=== PATIENT | female | born 1960 | race Caucasian/White ===

== ENCOUNTER 2019-02-04 10:03 | Day surgery (SDC) | payer OTHER ==
[~2019-02-04] VITALS: Ht 170.2 cm; Wt 89.2 kg
[~2019-02-04 10:03] MED LIST: CLON.5; CLON.5 PO; DULO30 PO; Flovent Diskus50 MCG IH; HYDR1TAB94; HYDR1TAB94 PO; METO25 PO; METO50ER PO; SUMA25 PO; ZOLP5 PO
== END 2019-02-04 11:45 | disposition home or self-care (01) ==
LOC: ORSCSDS 10:03
PROVIDERS: Internal Medicine Gastroenterology
PROC: 0DBE8ZX Excision of Large Intestine, Via Natural or Artificial Opening Endoscopic, Diagnostic (ICD-10-PCS; principal; 2019-02-04 11:15)
PROC: 0DBH8ZX Excision of Cecum, Via Natural or Artificial Opening Endoscopic, Diagnostic (ICD-10-PCS; principal; 2019-02-04 11:15)
PROC: 0DB98ZX Excision of Duodenum, Via Natural or Artificial Opening Endoscopic, Diagnostic (ICD-10-PCS; principal; 2019-02-04 11:15)
PROC: 0DB68ZX Excision of Stomach, Via Natural or Artificial Opening Endoscopic, Diagnostic (ICD-10-PCS; principal; 2019-02-04 11:15)
PROC: 0DB58ZX Excision of Esophagus, Via Natural or Artificial Opening Endoscopic, Diagnostic (ICD-10-PCS; principal; 2019-02-04 11:15)
DX: R10.13 Epigastric pain (principal); K21.9 Gastro-esophageal reflux disease without esophagitis; D13.0 Benign neoplasm of esophagus; K29.70 Gastritis, unspecified, without bleeding; Z12.11 Encounter for screening for malignant neoplasm of colon; Z86.010 Personal history of colon polyps; D12.0 Benign neoplasm of cecum; K44.9 Diaphragmatic hernia without obstruction or gangrene; K57.30 Diverticulosis of large intestine without perforation or abscess without bleeding; K64.8 Other hemorrhoids; Z79.899 Other long term (current) drug therapy
CPT/HCPCS: 88305; 88342; J1980; J2704; J7120

== ENCOUNTER → 2021-05-30 | Outpatient (CLI) | payer OTHER | END | disposition home or self-care (01) | LOC: LAB 08:20 → LAB SHORT 08:20 | DX: L82.1 Other seborrheic keratosis (principal) | CPT/HCPCS: 88305 ==

== ENCOUNTER 2023-10-21 02:35 | Day surgery (SDC) | payer MEDICARE, OTHER ==
[2023-10-21 10:07] VITALS: BP 137/92
[2023-10-21] MEDS ORDERED: METHOTREXATE2.5 M1 PO (11:37)
[2023-10-21] MEDS ORDERED: Doxycycline Mo100 M1 PO (11:39)
== END 2023-10-21 11:08 | disposition home or self-care (01) ==
LOC: ATC 02:35
DX: L40.50 Arthropathic psoriasis, unspecified (principal)
CPT/HCPCS: 96365; J1602

== ENCOUNTER 2023-11-18 00:06 | Day surgery (SDC) | payer MEDICARE, OTHER ==
[~2023-11-18 00:06] MED LIST changes: +Doxycycline Mo100 M1 PO; +METHOTREXATE2.5 M1 PO
[2023-11-18] MEDS ORDERED: NS IV SCH (06:00)
[2023-11-18] MEDS ORDERED: GOLIMUMAB IV SCH (06:00)
[2023-11-18 10:15] VITALS: BP 116/84
== END 2023-11-18 11:55 | disposition home or self-care (01) ==
LOC: ATC 00:06
DX: L40.50 Arthropathic psoriasis, unspecified (principal)
CPT/HCPCS: 96365; J1602

== ENCOUNTER 2024-12-21 02:07 | Day surgery (SDC) | payer MEDICARE, OTHER ==
[~2024-12-21] VITALS: Wt 89.4 kg
[2024-12-21] MEDS ORDERED: CELE200 PO (07:38)
[2024-12-21] MEDS ORDERED: SIMPONI AR50 MG/4 M1 IV (07:38)
[2024-12-21] MEDS ORDERED: DULO30 PO (07:40)
[2024-12-21 07:41] VITALS: BP 119/83
[2024-12-21] MEDS ORDERED: NS IV SCH (07:55)
[2024-12-21] MEDS ORDERED: GOLIMUMAB IV SCH (07:55)
== END 2024-12-21 09:12 | disposition home or self-care (01) ==
LOC: ATC 02:07
DX: L40.50 Arthropathic psoriasis, unspecified (principal)
CPT/HCPCS: 96365; J1602

== ENCOUNTER 2025-01-18 01:23 | Day surgery (SDC) | payer MEDICARE, OTHER ==
[~2025-01-18 01:23] MED LIST changes: +CELE200 PO; +SIMPONI AR50 MG/4 M1 IV
[2025-01-18] MEDS ORDERED: GOLIMUMAB IV SCH ×2 (06:00→10:15)
[2025-01-18] MEDS ORDERED: NS IV SCH ×2 (06:00→10:15)
[2025-01-18 09:55] VITALS: BP 115/85
== END 2025-01-18 11:11 | disposition home or self-care (01) ==
LOC: ATC 01:23
DX: L40.50 Arthropathic psoriasis, unspecified (principal); Z79.899 Other long term (current) drug therapy
CPT/HCPCS: 96365; J1602

== ENCOUNTER 2025-05-10 08:02 | Day surgery (SDC) | payer MEDICARE, OTHER ==
[~2025-05-10] VITALS: Wt 90.4 kg
[~2025-05-10 08:02] MED LIST changes: +PROM12.5S PR
[2025-05-10] MEDS ORDERED: GOLIMUMAB IV SCH (10:15)
[2025-05-10] MEDS ORDERED: NS IV SCH (10:15)
[2025-05-10 10:22] VITALS: BP 118/82
== END 2025-05-10 11:05 | disposition home or self-care (01) ==
LOC: ATC 08:02
DX: L40.50 Arthropathic psoriasis, unspecified (principal)
CPT/HCPCS: 96365; J1602

== ENCOUNTER 2025-07-12 01:31 | Day surgery (SDC) | payer MEDICARE, OTHER ==
[~2025-07-12] VITALS: Wt 87.8 kg
[2025-07-12 09:13] VITALS: BP 135/88
[2025-07-12] MEDS ORDERED: NS IV SCH (09:30)
[2025-07-12] MEDS ORDERED: GOLIMUMAB IV SCH (09:30)
== END 2025-07-12 10:28 | disposition home or self-care (01) ==
LOC: ATC 01:31
DX: L40.50 Arthropathic psoriasis, unspecified (principal); Z79.899 Other long term (current) drug therapy
CPT/HCPCS: 96365; A9270; J1602

== ENCOUNTER 2025-09-06 07:48 | Day surgery (SDC) | payer MEDICARE, OTHER ==
[~2025-09-06] VITALS: Wt 87.5 kg
[2025-09-06] MEDS ORDERED: NS IV SCH (09:00)
[2025-09-06] MEDS ORDERED: GOLIMUMAB IV SCH (09:00)
[2025-09-06 09:01] VITALS: BP 121/84
--- NOTE | 2025-09-06 10:05 | NUR ---
PATIENT REPORTS TAKING HER OWN TYLENOL AND CLARITIN AT HOME AND DECLINED THE STEROID TODAY
== END 2025-09-06 09:48 | disposition home or self-care (01) ==
LOC: ATC 07:48
DX: L40.50 Arthropathic psoriasis, unspecified (principal); M19.90 Unspecified osteoarthritis, unspecified site; Z79.631 Long term (current) use of antimetabolite agent; Z79.899 Other long term (current) drug therapy
CPT/HCPCS: 96365; A9270; J1602